=== PATIENT | female | born 1980 | race African-American/Black ===

== ENCOUNTER 2018-01-05 01:42 | Emergency (ER) | payer MEDICAID ==
[~2018-01-05] VITALS: Ht 167.6 cm; Wt 65.3 kg
[2018-01-05] MEDS ORDERED: IPRATROPIUM BROMIDE 0.5 MG/2.5 ML NEBU NEB ONE (02:00)
[2018-01-05] MEDS ORDERED: LORAZEPAM 0.5 MG TABLET PO ONE (02:00)
[2018-01-05] MEDS ORDERED: ALBUTEROL SULFATE 2.5 MG/3 ML NEBU NEB ONE (02:00)
[2018-01-05] MEDS ORDERED: LORAZEPAM 1 MG TABLET ONE (02:03)
[2018-01-05] MEDS ORDERED: IPRATROPIUM BROMIDE 0.5 MG/2.5 ML NEBU ONE (02:08)
[2018-01-05] MEDS ORDERED: ALBUTEROL SULFATE 2.5 MG/3 ML NEBU ONE (02:08)
--- NOTE | 2018-01-05 02:39 | NUR ---
Patient discharged to home in stable conditon. Written and verbal after care instructions given. Patient verbalizes understanding of instructions. Pt ambulated out of ER in steady gait and states she will not drive home. All belongings with pt. VSS. NAD noted.
[2018-01-05 02:41] VITALS: BP 110/56
== END 2018-01-05 02:41 | disposition home or self-care (01) ==
LOC: ER 01:51
DX: J98.01 Acute bronchospasm (principal); J45.909 Unspecified asthma, uncomplicated; Z91.010 Allergy to peanuts; Z91.041 Radiographic dye allergy status
CPT/HCPCS: 94640; 99283; A4663; J3590

== ENCOUNTER 2018-04-23 01:13 | Emergency (ER) | payer MEDICAID ==
[~2018-04-23] VITALS: Ht 167.6 cm; Wt 65.3 kg
--- NOTE | 2018-04-23 01:30 | NUR ---
Pt. ambulated into ED w/ c/o anxiety x 2 days,
[2018-04-23] MEDS ORDERED: ALBUTEROL SULFATE 2.5 MG/3 ML NEBU ONE (01:50)
[2018-04-23] MEDS ORDERED: IPRATROPIUM BROMIDE 0.5 MG/2.5 ML NEBU ONE (01:50)
[2018-04-23] MEDS ORDERED: IPRATROPIUM BROMIDE 0.5 MG/2.5 ML NEBU NEB ONE (02:00)
[2018-04-23] MEDS ORDERED: predniSONE 50 MG TABLET PO ONE (02:00)
[2018-04-23] MEDS ORDERED: ALBUTEROL SULFATE 2.5 MG/3 ML NEBU NEB ONE (02:00)
[2018-04-23] MEDS ORDERED: predniSONE 50 MG TABLET ONE (02:17)
--- NOTE | 2018-04-23 02:29 | NUR ---
Patient discharged to home in stable conditon. Written and verbal after care instructions given. Patient verbalizes understanding of instructions. Pt. d/c w/ prescription per MD order, d/c paper signed, all belongings w/ pt., ID band removed, ambulated out of ED w/ steady gait, NAD
== END 2018-04-23 02:32 | disposition home or self-care (01) ==
LOC: ER 01:16
DX: J45.909 Unspecified asthma, uncomplicated (principal); Z91.010 Allergy to peanuts; Z88.8 Allergy status to other drugs, medicaments and biological substances
CPT/HCPCS: 94640; 99283; J7512; A4663; J3590